=== PATIENT | male | born 1970 | race Caucasian/White ===

== ENCOUNTER 2017-03-26 06:09 | Emergency (ER) | payer MEDICARE, OTHER ==
[~2017-03-26] VITALS: Ht 185.4 cm; Wt 78.6 kg
[~2017-03-26 06:09] MED LIST: ADVAI250I INH; ALBU0.086 INH; ASAC400T PO; ASACOL; DEPAKOTE; LATU80TA OR; LOMO PO; PROT40TA PO; SERO100T OR; SERO300T OR; SERT100 PO; TAB-TAB PO; TRIH5 PO; VENTAER INH; [UNRECOGNIZED DRUG - CODE] OR; [UNRECOGNIZED DRUG - OTHER] PO
[2017-03-26 06:19] VITALS: BP 118/80; PULSE 101; RESP 20; TEMP 99; O2SAT 95
[2017-03-26] MEDS ORDERED: TRAZ50TA12 PO (06:46)
[2017-03-26] MEDS ORDERED: MULTTAB67 PO (06:46)
[2017-03-26] MEDS ORDERED: ZIPR1CAP8 PO (06:47)
[2017-03-26] MEDS ORDERED: CLON0.5T PO (06:47)
[2017-03-26] MEDS ORDERED: DIVA500T3 PO (06:47)
[2017-03-26] MEDS ORDERED: ZIPR1CAP12 PO (06:47)
[2017-03-26] MEDS ORDERED: MELA5 PO (06:47)
[2017-03-26] MEDS ORDERED: DIPH25CA PO (06:54)
[2017-03-26] MEDS ORDERED: [UNRECOGNIZED DRUG - CODE] NASAL (06:54)
[2017-03-26] MEDS ORDERED: FORM1POW2 INH (06:54)
[2017-03-26] MEDS ORDERED: ALBU.5I NEB (06:54)
[2017-03-26] MEDS ORDERED: PANT40TA3 PO (06:54)
[2017-03-26] MEDS ORDERED: HYDR-3133 PO (06:57)
[2017-03-26] MEDS ORDERED: VENTAER INH (06:57)
[2017-03-26] MEDS ORDERED: SODIUM CHLOR 0.9% 1000 ML INJ 1,000 ML IV SCH (07:18)
[2017-03-26] MEDS ORDERED: ONDANSETRON HCL 4 MG/2 ML VIAL IVP ONE (07:30)
[2017-03-26] MEDS ORDERED: SODIUM CHLORIDE 0.9% FLUSH 10 ML FLUSH IV FLUSH PRN (07:30)
--- NOTE | 2017-03-26 07:31 | PD ---
HPI Chief Complaint: GI Complaint Time Seen by Provider: 07:18 Travel History International Travel<30 days: No Contact w/Intl Traveler<30days: No Traveled to known affect area: No History of Present Illness HPI 46yo M presented to the ED with vomiting. Pt states that last night he drank about 7 shots of Bacardi and started to feel nauseated. He began throwing up around 23:00 without stopping. His father gave him two doses of Emertol but was unable to keep them down. Pt states that he has vomited about seven times, with the last being in the waiting room for the ED. Pt also states that he ate some chicken salad two nights prior, which he thinks may have contributed to the vomiting. Pt has a significant medical history of diabetes, asthma, COPD, schizophrenia, tobacco use and alcohol use. He states that he drinks about 2 glasses of Bacardi and coke per night for the last four months. Pt denies any hematemesis, coffee ground emesis, abdominal pain, headache, weakness, fever, myalgias, changes in urination or bowel function. He also states that his mother woke up also sick, had 2 episodes of nausea, vomiting and diarrhea this morning. She also had the chicken salad. Modifying Factors: None Associated Signs & Symptoms: Nausea, vomiting, diarrhea Risk Factors: Possible bad food exposure, sick contact PFSH Past Medical History Arthritis: No Asthma: Yes Autoimmune Disease: No Blood Disorders: No Anxiety: Yes Depression: Yes ( DEPRESSED WHEN NOT DRINKING CAFFEINE) Heart Rhythm Problems: No Cancer: No Cardiovascular Problems: No High Cholesterol: No Chemotherapy: No Chest Pain: No Congestive Heart Failure: No COPD: No Cerebrovascular Accident: No Diabetes: No Diminished Hearing: No Endocrine: No Gastrointestinal Disorders: Yes (BARRETTS ESOPHAGEAL, COLITIS) GERD: Yes Glaucoma: No Genitourinary: No Headaches: Yes Hepatitis: No Hiatal Hernia: No Hypertension: No Immune Disorder: No Inguinal Hernia: Yes Kidney Stones: Yes Musculoskeletal: No Neurologic: Yes (STATES TEMPORAL LOBE MASS UNCHANGED FOLLOWED BY DR GOSS X 2 YEARS) Psychiatric: Yes (PARANOID SCHIZOPHRENIA) Reproductive: No Respiratory: Yes (ASTHMA) Immunizations Current: Yes Migraines: No Myocardial Infarction: No Radiation Therapy: No Renal Failure: No Schizophrenia: Yes (PARANOID) Seizures: Yes (EPILEPSY) Sickle Cell Disease: No Sleep Apnea: No Thyroid Disease: No Ulcer: Yes (STOMACH) Influenza Vaccination: Yes PNEUMOCCOCAL Vaccine (Year): 3 Past Surgical History Abdominal Surgery: Yes (HERNIA REPAIR X2) AICD: No Appendectomy: Yes (1989) Arteriovenous Shunt: No Cardiac Surgery: No Cholecystectomy: No Ear Surgery: No Endocrine Surgery: No Eye Surgery: No Genitourinary Surgery: No Insulin Pump: No Joint Replacement: No Neurologic Surgery: No Oral Surgery: Yes (WISDOM TEETH, EXTRACTIONS, DENTAL IMPLANT) Pacemaker: No Thoracic Surgery: No Other Surgery: Yes (INGUINAL BILAT ) Social History Alcohol Use: Yes ("NORMALLY DRINK 2 DRINKS IN THE EVENING" STATED 03/26/17) Tobacco Use: Yes (8 CIGARETTES DAILY, VAPE : STATED 03/26/17) Substance Use: Yes (LEGAL CBD OIL) Allergies-Medications (Allergen,Severity, Reaction): Coded Allergies: benztropine (Unverified Allergy, Severe, URINARY HESITENTCY, 03/26/17) hornet venom (Unverified Allergy, Severe, WASP SPRAY THROAT SWELLING, 03/26) penicillin G (Unverified Allergy, Severe, HIVES, 03/26/17) erythromycin base (Unverified Adverse Reaction, Intermediate, "stomach pain", 03/26/17) Uncoded Allergies: Insecticide Used for Wasps (Allergy, Unknown, 11/26/10) trilafon (Adverse Reaction, Severe, 11/26/10) Reported Meds & Prescriptions Reported Meds & Active Scripts Active Reported Ventolin Hfa 18 GM Inh (Albuterol Sulfate) 90 Mcg/Act Aer 2 Puff INH Q6H PRN Hydroxyzine HCl 25 Mg Tab 25 Mg PO BID Pantoprazole (Pantoprazole Sodium) 40 Mg Tab 40 Mg PO DAILY Formoterol Fumarate Dihydrate 100 % Pow 12 Mcg INH Q12H Benzedrex Inhaler (Propylhexedrine) 1 Inh Inh 2 Inhaler NASAL HS Diphenhydramine (Diphenhydramine HCl) 25 Mg Cap 25 Mg PO Q6H PRN Albuterol Neb (Albuterol Sulfate) 2.5 Mg/0.5 Ml Neb 2.5 Mg NEB Q6HR NEB PRN Note: The Albuterol Sulfate Inhalation Solution is concentrated and must be diluted. Read complete instructions carefully before using. Melatonin 5 Mg Tab 9 Mg PO HS PRN Divalproex ER (Divalproex Sodium) 500 Mg Tab 1,000 Mg PO BID Ziprasidone 80 Mg Cap 100 Mg PO AC DINNER Ziprasidone 40 Mg Cap 40 Mg PO AC BREAKFAST Clonazepam 0.5 Mg Tab 0.5 Mg PO DAILY PRN Multiple Vitamin 1 Tab 1 Tab PO DAILY Trazodone (Trazodone HCl) 50 Mg Tab 50 Mg PO HS Review of Systems Except as stated in HPI: all other systems reviewed are Neg Gastrointestinal: Positive: Nausea, Vomiting Physical Exam Narrative GENERAL: 46yo M who is well-developed and well-nourished currently in mild distress. Alert and oriented x3. Father was present during the interview. SKIN: Warm and dry. HEAD: Atraumatic. Normocephalic. NECK: Trachea midline. No JVD. Supple. CARDIOVASCULAR: Regular rate and rhythm. RESPIRATORY: No accessory muscle use. Clear to auscultation. Bilateral inspiratory wheezing. GASTROINTESTINAL: Abdomen soft, non-tender, nondistended. Hepatic and splenic margins not palpable. Incisional scars from a previous appendectomy present. Benign. MUSCULOSKELETAL: Extremities without clubbing, cyanosis, or edema. No obvious deformities. NEUROLOGICAL: Awake and alert. No obvious cranial nerve deficits. Motor grossly within normal limits. Normal speech. PSYCHIATRIC: Appropriate mood and affect; insight and judgment normal. Data Data Last Documented VS Vital Signs Date Time Temp Pulse Resp B/P (MAP) Pulse Ox O2 Delivery O2 Flow Rate FiO2 03/26/17 08:53 90 20 110/75 (87) 96 03/26/17 07:56 Room Air 03/26/17 06:19 99.0 Orders Orders Complete Blood Count With Diff (03/26/17 07:18) Comprehensive Metabolic Panel (03/26/17 07:18) Lipase (03/26/17 07:18) Abdomen, Flat & Upright (03/26/17 ) Iv Access Insert/Monitor (03/26/17 07:18) Ecg Monitoring (03/26/17 07:18) Oximetry (03/26/17 07:18) Ondansetron Inj (Zofran Inj) (03/26/17 07:30) Sodium Chlor 0.9% 1000 Ml Inj (Ns 1000 M (03/26/17 07:18) Sodium Chloride 0.9% Flush (Ns Flush) (03/26/17 07:30) Beta Hydroxybutyrate (Acetone) (03/26/17 07:19) Ed Discharge Order (03/26/17 08:51) Labs Laboratory Tests Test 03/26/17 07:22 White Blood Count 14.2 TH/MM3 Red Blood Count 5.14 MIL/MM3 Hemoglobin 16.6 GM/DL Hematocrit 48.6 % Mean Corpuscular Volume 94.4 FL Mean Corpuscular Hemoglobin 32.3 PG Mean Corpuscular Hemoglobin Concent 34.2 % Red Cell Distribution Width 13.7 % Platelet Count 190 TH/MM3 Mean Platelet Volume 9.3 FL Neutrophils (%) (Auto) 90.5 % Lymphocytes (%) (Auto) 1.5 % Monocytes (%) (Auto) 7.4 % Eosinophils (%) (Auto) 0.3 % Basophils (%) (Auto) 0.3 % Neutrophils # (Auto) 12.9 TH/MM3 Lymphocytes # (Auto) 0.2 TH/MM3 Monocytes # (Auto) 1.1 TH/MM3 Eosinophils # (Auto) 0.0 TH/MM3 Basophils # (Auto) 0.0 TH/MM3 CBC Comment DIFF FINAL Differential Comment Blood Urea Nitrogen 20 MG/DL Creatinine 0.76 MG/DL Random Glucose 106 MG/DL Total Protein 7.6 GM/DL Albumin 3.7 GM/DL Calcium Level 8.8 MG/DL Alkaline Phosphatase 61 U/L Aspartate Amino Transf (AST/SGOT) 53 U/L Alanine Aminotransferase (ALT/SGPT) 61 U/L Total Bilirubin 1.0 MG/DL Sodium Level 139 MEQ/L Potassium Level 3.7 MEQ/L Chloride Level 101 MEQ/L Carbon Dioxide Level 27.4 MEQ/L Anion Gap 11 MEQ/L Estimat Glomerular Filtration Rate 111 ML/MIN Lipase 141 U/L B-Hydroxybutyrate 0.50 MMOL/L MDM Medical Decision Making Medical Screen Exam Complete: Yes Emergency Medical Condition: Yes Medical Record Reviewed: Yes Interpretation(s) Laboratory Tests Test 03/26/17 07:22 White Blood Count 14.2 TH/MM3 (4.0-11.0) Neutrophils (%) (Auto) 90.5 % (16.0-70.0) Lymphocytes (%) (Auto) 1.5 % (9.0-44.0) Neutrophils # (Auto) 12.9 TH/MM3 (1.8-7.7) Lymphocytes # (Auto) 0.2 TH/MM3 (1.0-4.8) Monocytes # (Auto) 1.1 TH/MM3 (0-0.9) Blood Urea Nitrogen 20 MG/DL (7-18) Aspartate Amino Transf (AST/SGOT) 53 U/L (15-37) B-Hydroxybutyrate 0.50 MMOL/L (0.00-0.39) Last 24 hours Impressions Abdomen X-Ray 03/26/17 0000 Signed Impressions: Service Date/Time: Sunday, March 26, 2017 08:10 - CONCLUSION: Nonspecific bowel gas pattern. Jelani Neal MD Differential Diagnosis Gastroenteritis versus food borne illnesses versus influenza versus pancreatitis versus gastritis versus dehydration versus metabolic issues Narrative Course Abdomen is fairly benign and I do not suspect an acute intra-abdominal process. He does not have an appendix, has had surgery. Lab work does show some signs of leukocytosis. X-ray did not show any signs of acute obstruction or free air. Considering his history and his sick contact, this is much more likely to be a foodborne illness or gastroenteritis. With the leukocytosis, diarrhea, and likely a food borne illness, my plan would be to treat him with antibiotics and also symptomatically for nausea and vomiting. He had been given IV fluids, Zofran in the ER and on reevaluation at 8:50 AM is doing well, had no further vomiting episodes in the ER and is asking to drink something. At this point, my plan would be to release him with follow-up to primary care doctor as needed. Return for worsening in symptoms as needed. The plan has been discussed with him and he states understanding. Diagnosis Primary Impression: Nausea and vomiting Med/Other Pt SpecificInfo: Prescription(s) given Scripts Ondansetron Odt (Zofran Odt) 4 Mg Tab 4 MG SL Q6HR Y for Nausea/Vomiting, #7 TAB 0 Refills Prov: Yoshi Hewitt MD 03/26/17 Ciprofloxacin (Cipro) 500 Mg Tab 500 MG PO BID for Infection for 7 Days, #14 TAB 0 Refills Prov: Yoshi Hewitt MD 03/26/17 Disposition: DISCHARGE HOME Condition: Stable Yoshi Hewitt MD Mar 26, 2017 07:31
[2017-03-26 07:39] LABS: AUTOMATED NEUTROPHIL # 12.9 TH/MM3 (1.8-7.7); BASOPHIL % 0.3 % (0.0-2.0); EOSINOPHIL % 0.3 % (0.0-4.0); HEMATOCRIT 48.6 % (39.0-51.0); HEMOGLOBIN 16.6 GM/DL (13.0-17.0); LYMPH % 1.5 % (9.0-44.0); LYMPHOCYTE # 0.2 TH/MM3 (1.0-4.8); MEAN CELL VOLUME 94.4 FL (80.0-100.0); MEAN CORPUSCULAR HEMOGLOBIN 32.3 PG (27.0-34.0); MEAN CORPUSCULAR HGB CONC 34.2 % (32.0-36.0); MEAN PLATELET VOLUME 9.3 FL (7.0-11.0); MONO % 7.4 % (0.0-8.0); MONOCYTE # 1.1 TH/MM3 (0-0.9); NEUT % 90.5 % (16.0-70.0); PLATELET COUNT 190 TH/MM3 (150-450); RED BLOOD COUNT 5.14 MIL/MM3 (4.50-5.90); RED CELL DISTRIBUTION WIDTH 13.7 % (11.6-17.2); WHITE BLOOD COUNT 14.2 TH/MM3 (4.0-11.0)
[2017-03-26 07:45] LABS: CHLORIDE 101 MEQ/L (98-107); SODIUM (NA) 139 MEQ/L (136-145)
[2017-03-26 07:49] LABS: ALBUMIN 3.7 GM/DL (3.4-5.0); BICARBONATE 27.4 MEQ/L (21.0-32.0); BLOOD UREA NITROGEN 20 MG/DL (7-18); CALCIUM 8.8 MG/DL (8.5-10.1); GLUCOSE,RANDOM 106 MG/DL (74-106); LIPASE 141 U/L (73-393)
[2017-03-26 07:52] LABS: ALT (GPT) 61 U/L (12-78); AST (GOT) 53 U/L (15-37); CREATININE 0.76 MG/DL (0.60-1.30); GLOMERULAR FILTRATION RATE 111 ML/MIN (>89)
[2017-03-26 07:54] LABS: TOTAL PROTEIN 7.6 GM/DL (6.4-8.2)
[2017-03-26 07:55] LABS: ALKALINE PHOSPHATASE 61 U/L (45-117)
[2017-03-26 07:56] VITALS: O2SAT 96
--- NOTE | 2017-03-26 08:40 | RADRPT ---
EXAM DATE/TIME: 03/26/2017 08:10 [facility] COMPARISON: No previous studies available for comparison. INDICATIONS : Vomiting, unable to hold water down, dizzy MEDICAL HISTORY : asthma SURGICAL HISTORY : Appendectomy. hernia repair ENCOUNTER: Initial ACUITY: 1 day PAIN SCORE: 2/10 LOCATION: Bilateral abdomen FINDINGS: Supine and upright views of the abdomen were performed. Scattered gas in the colon. Multiple small a ir-fluid levels are seen in all 4 quadrants of the abdomen that may be within small bowel or colon. N o evidence of free air. Small endplate osteophytes indicating degenerative type change of the lumbar spine. No abnormal abdominal calcification. Phlebolith noted in the left side of the pelvis. CONCLUSION: Nonspecific bowel gas pattern. Jelani Neal MD on March 26, 2017 at 8:35 Board Certified Radiologist. This report was verified electronically.
[2017-03-26 08:53] VITALS: BP 110/75; PULSE 90; RESP 20; O2SAT 96
[2017-03-26] MEDS ORDERED: ZOFR4TAB3 SL (09:03)
[2017-03-26] MEDS ORDERED: CIPR-9 PO (09:03)
== END 2017-03-26 09:14 | disposition home or self-care (01) ==
LOC: PHED 06:09
DX: R11.2 Nausea with vomiting, unspecified (principal); E11.9 Type 2 diabetes mellitus without complications; J44.9 Chronic obstructive pulmonary disease, unspecified; Z72.0 Tobacco use
CPT/HCPCS: 74019; 80053; 82010; 83690; 85025; 96361; 96374; 99284; J2405; J7030